=== PATIENT | male | born 1970 | race Caucasian/White ===

== ENCOUNTER → 2019-07-18 | Outpatient (CLI) | payer BC ==
--- NOTE | 2019-07-18 09:22 | Diagnostic Imaging Report ---
Left knee MRI without contrast. History: Knee pain. Internal drainage. Meniscus tear. Pain not responding to conservative management Comparison: None. Technique: Multiplanar multi-sequence MRI of the knee without contrast. Findings: Medial compartment: Obliquely oriented tear involving the posterior posterior horn of the medial meniscus best seen on coronal image 17. The medial compartmental articular cartilage surfaces are slightly thin. The medial collateral ligament complex is intact. Lateral compartment: The lateral meniscus is intact. Mild articular cartilage fraying and fissuring in the lateral compartment. The lateral collateral ligament complex is intact. Intercondylar notch: The ACL and PCL are intact. Patellofemoral compartment: No chondromalacia or patellar dislocation. Extensor mechanism: The quadriceps and patellar tendons are normal. Other findings: There is a joint effusion and synovitis. There is no acute fracture, subluxation or avascular necrosis. 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 Mild articular cartilage fraying and fissuring in the lateral compartment. Signed by: Dr. Jermaine Mendoza M.D. on 07/18/2019 9:18 AM
== END ==
LOC: MRI 07:36
PROVIDERS: ATTEND Family Medicine
DX: M23.207 Derangement of unspecified meniscus due to old tear or injury, left knee (principal)